=== PATIENT | male | born 1950 | race Caucasian/White ===

== ENCOUNTER 2018-09-29 09:05 | Day surgery (SDC) ==
[2018-09-29] MEDS: TETRACAINE 0.5% UNIT-DOSE OP PRN ×2 (09:35→10:40)
[2018-09-29] MEDS: BETADINE OPTH PREP OP PRN ×2 (09:36→10:42)
[2018-09-29] MEDS: CYCLOGYL 2% OPTH OP PRN ×3 (09:37→09:48)
[2018-09-29] MEDS ORDERED: ZOFRAN 4 MG/2 ML IVP ONE (10:14)
[2018-09-29] MEDS ORDERED: DEX-MOXI-KETOR OPTH INJ 1/0.5/0.4 MG/ML IO ONE (10:14)
[2018-09-29] MEDS ORDERED: LIDOCAINE 1%/PHENYLEPHRINE 1.5% BSS (SURGERY) INTRAOCULA ONE (10:14)
[2018-09-29] MEDS ORDERED: BSS WITH EPINEPHRINE OP ONE (10:14)
[2018-09-29] MEDS ORDERED: SUBLIMAZE ONE (10:40)
[2018-09-29] MEDS ORDERED: ZOFRAN 4 MG/2 ML ONE (10:40)
[2018-09-29] MEDS ORDERED: VERSED ONE (10:40)
[2018-09-29 15:30] VITALS: TEMP 97.5
[2018-10-01 15:50] VITALS: BP 112/67
== END 2018-09-29 11:40 | disposition home or self-care (01) ==
LOC: SURG 09:05
PROVIDERS: ATTEND Ophthalmology
DX: H25.812 Combined forms of age-related cataract, left eye (principal)